=== PATIENT | male | born 1985 | race African-American/Black ===

== ENCOUNTER 2016-12-09 20:21 | Emergency (ER) | payer SELFPAY ==
[~2016-12-09] VITALS: Ht 180.3 cm; Wt 68.0 kg
[2016-12-09] MEDS ORDERED: 0.9 % SODIUM CHLORIDE 10 ML DISP.SYRIN. IV PRN (21:30)
[2016-12-09] MEDS ORDERED: LIDO:MAALOX 1:1 20 ML SINGLE DOSE PO ONE (21:45)
[2016-12-09] MEDS ORDERED: ONDANSETRON PF 4 MG/2 ML VIAL. IV ONE (21:45)
[2016-12-09] MEDS ORDERED: IV NORMAL SALINE 1,000ML 1,000 ML IV SCH (21:45)
[2016-12-09 22:08] LABS: BASO % 0 % (0-3); EOS # 0.1 x10^3/uL (0.0-0.7); EOS % 1 % (0-3); HEMATOCRIT 47.9 % (39.0-53.0); LYMPH # 1.7 x10^3/uL (1.0-4.8); LYMPH % 13 % (24-48); MEAN CORPUSCULAR HEMOGLOBIN 32 pg (25-35); MEAN CORPUSCULAR HGB CONC 34 g/dL (31-37); MEAN CORPUSCULAR VOLUME 96 fL (79-100); MONO # 0.9 x10^3/uL (0.0-1.1); MONO % 7 % (0-9); NEUT # 10.5 x10^3uL (1.8-7.7); NEUT % 80 % (31-73); PLATELET COUNT 221 x10^3/uL (140-400); RED BLOOD COUNT 4.98 x10^6/uL (4.30-5.70); WHITE BLOOD COUNT 13.2 x10^3/uL (4.0-11.0)
[2016-12-09] MEDS: HYDROmorphone PF 1 MG/ML DISP.SYRIN IV/SQ PRN (22:08)
--- NOTE | 2016-12-09 22:08 | PHYS DOC ---
Past History Past Medical History: No Pertinent History Past Surgical History: No Surgical History Smoking: Cigarettes Alcohol Use: Heavy Drug Use: None, Marijuana Adult General Chief Complaint Chief Complaint: ABDOMINAL PAIN HPI HPI Patient is a pleasant 31-year-old otherwise healthy male presents with a three- day history of epigastric abdominal pain with radiation to the back. It is described as sharp and stabbing that is worse with food better with alcohol but has not completely resolved the last 2 days. He's had one episode of nausea and vomiting today and nonbilious nonbloody with no mucus. He denies any fevers chills denies any diarrhea but has noted dark tarry stool. He denies any NSAID usage or [id number] medication abuse. Patient has never had any symptoms like this in the past. He denies travel outside the country, antibiotic use, recent trauma or suction of raw food products. He has not taken anything for his pain and he presently rates his pain a 10 of 10 worsen with position and breathing. He denies any chest pain, UTI symptoms, penile discharge or history of STDs. He does drink daily although the volume changes from day-to-day he does smoke. He denies any history of delirium tremens or withdrawal symptoms after stopping drinking. Review of Systems Review of Systems Constitutional: Denies fever or chills [] Eyes: Denies change in visual acuity, redness, or eye pain [] HENT: Denies nasal congestion or sore throat [] Respiratory: Denies cough or shortness of breath [] Cardiovascular: No additional information not addressed in HPI [] GI: He does complain of abdominal pain with nausea and vomiting times one episode. He denies any diarrhea but has had some loose black tarry stools : Denies dysuria or hematuria [] Musculoskeletal: Does complain of back pain radiates from his abdomen. Integument: Denies rash or skin lesions [] Neurologic: Denies headache, focal weakness or sensory changes [] Endocrine: Denies polyuria or polydipsia [] Current Medications Current Medications Current Medications Medications (Trade) Dose Ordered Sig/Katy Start Time Stop Time Status Last Admin Dose Admin Hydromorphone HCl (Dilaudid) 1 mg PRN Q15MIN PRN 12/09/16 21:30 12/10/16 21:29 Multi-Ingredient Mouthwash/Gargle (Gi Cocktail) 20 ml 1X ONCE 12/09/16 21:45 12/09/16 21:46 DC Ondansetron HCl (Zofran) 4 mg 1X ONCE 12/09/16 21:45 12/09/16 21:46 DC Sodium Chloride (Normal Saline Flush) 10 ml QSHIFT PRN 12/09/16 21:30 Allergies Allergies Allergies Coded Allergies Type Severity Reaction Last Updated Verified No Known Drug Allergies 12/09/16 No Physical Exam Physical Exam Constitutional: Well developed, well nourished, no acute distress, non-toxic appearance. [] HENT: Normocephalic, atraumatic, bilateral external ears normal, oropharynx moist, no oral exudates, nose normal. [] Eyes: PERRLA, EOMI, conjunctiva normal, no discharge. [] Neck: Normal range of motion, no tenderness, supple, no stridor. [] Cardiovascular:Heart rate regular rhythm, no murmur [] Lungs & Thorax: Bilateral breath sounds clear to auscultation [] Abdomen: She does have significant tenderness in epigastric region with voluntary guarding no rebound or organomegaly. Patient has no pulsatile masses Skin: Warm, dry, no erythema, no rash. [] Back: No tenderness, no CVA tenderness. [] Extremities: No tenderness, no cyanosis, no clubbing, ROM intact, no edema. [] Neurologic: Alert and oriented X 3, normal motor function, normal sensory function, no focal deficits noted. [] Psychologic: Affect normal, judgement normal, mood normal. [] Current Patient Data Vital Signs Vital Signs Date Time Temp Pulse Resp B/P (MAP) Pulse Ox O2 Delivery O2 Flow Rate FiO2 12/09/16 21:00 97.7 64 16 100 Room Air Lab Results Laboratory Tests Test 12/09/16 21:50 12/09/16 22:25 White Blood Count 13.2 x10^3/uL (4.0-11.0) H Red Blood Count 4.98 x10^6/uL (4.30-5.70) Hemoglobin 16.0 g/dL (13.0-17.5) Hematocrit 47.9 % (39.0-53.0) Mean Corpuscular Volume 96 fL (79-100) Mean Corpuscular Hemoglobin 32 pg (25-35) Mean Corpuscular Hemoglobin Concent 34 g/dL (31-37) Red Cell Distribution Width 14.0 % (11.5-14.5) Platelet Count 221 x10^3/uL (140-400) Neutrophils (%) (Auto) 80 % (31-73) H Lymphocytes (%) (Auto) 13 % (24-48) L Monocytes (%) (Auto) 7 % (0-9) Eosinophils (%) (Auto) 1 % (0-3) Basophils (%) (Auto) 0 % (0-3) Neutrophils # (Auto) 10.5 x10^3uL (1.8-7.7) H Lymphocytes # (Auto) 1.7 x10^3/uL (1.0-4.8) Monocytes # (Auto) 0.9 x10^3/uL (0.0-1.1) Eosinophils # (Auto) 0.1 x10^3/uL (0.0-0.7) Basophils # (Auto) 0.0 x10^3/uL (0.0-0.2) Sodium Level 142 mmol/L (136-145) Potassium Level 3.8 mmol/L (3.5-5.1) Chloride Level 105 mmol/L (98-107) Carbon Dioxide Level 30 mmol/L (21-32) Anion Gap 7 (6-14) Blood Urea Nitrogen 9 mg/dL (8-26) Creatinine 0.9 mg/dL (0.7-1.3) Estimated GFR (Cockcroft-Gault) 119.9 BUN/Creatinine Ratio 10 (6-20) Glucose Level 91 mg/dL (70-99) Calcium Level 8.1 mg/dL (8.5-10.1) L Total Bilirubin 0.6 mg/dL (0.2-1.0) Aspartate Amino Transferase (AST) 13 U/L (15-37) L Alanine Aminotransferase (ALT) 15 U/L (16-63) L Alkaline Phosphatase 61 U/L (46-116) Total Protein 6.9 g/dL (6.4-8.2) Albumin 3.2 g/dL (3.4-5.0) L Albumin/Globulin Ratio 0.9 (1.0-1.7) L Lipase 74 U/L (73-393) Ethyl Alcohol Level < 10 mg/dL (0-10) EKG EKG [] Radiology/Procedures Radiology/Procedures [address] [id number] IMAGING REPORT Signed PATIENT: EDMAR CLAIRE ACCOUNT: [id number] : 1985 LOCATION: ER AGE: 31 SEX: M EXAM STATUS: REG ER ORD. PHYSICIAN: BHAVIN CONTRERAS MD REASON: abdominal pain nausea vomiting black tarry stool EtOH consumption PROCEDURE: CT ABD PELV W/ IV CONTRST ONLY CT scan of the abdomen and pelvis with contrast 12/09/2016 CLINICAL HISTORY: Central abdominal pain and vomiting TECHNIQUE: After the intravenous administration of 75 cc of Omnipaque 300, contiguous, 5 mm axial sections were obtained through the abdomen and pelvis. One or more of the following individualized dose reduction techniques were utilized for this study: 1. Automated exposure control. 2. Adjustment of the mA and/or kV according to patient size. 3. Use of iterative reconstruction technique. FINDINGS: Images through the lung bases are within normal limits. The liver, spleen, pancreas, adrenal glands and kidneys are within normal limits. The abdominal aorta tapers normally. The gallbladder is well-distended. A small amount of ascites is seen inferior to the right lobe of the liver. There is no evidence of bowel obstruction. No free air is seen. The mid/distal aspect of the appendix is dilated measuring 1.7 cm in diameter. Marked wall thickening of the appendix is seen. Increased density is seen within the adjacent fat. These findings are consistent with acute appendicitis. Images through the pelvis demonstrate the urinary bladder distended with urine. Small amount of free fluid is seen within the pelvis. Calcifications are seen within the pelvis consistent with phleboliths. Minimal S-shaped curvature of the thoracolumbar spine is seen. IMPRESSION: Findings are seen consistent with acute appendicitis. Small amount of free fluid is seen within the abdomen and pelvis. No well-defined abscess is seen. Electronically signed by: Edward Negro MD (12/10/2016 12:48 AM) [facility] DICTATED AND SIGNED BY: EDWARD NEGRO MD DATE: 12/10/16 0042 CC: BHAVIN CONTRERAS MD; PCP,NO ~ [] Course & Med Decision Making Course & Med Decision Making Pertinent Labs and Imaging studies reviewed. (See chart for details) reviewed nursing notes, vital signs, physical and history. Patient's H&H is nice and stable patient's lipase is normal patient's AST and ALTs are actually low. Patient only abnormal laboratory value isn't elevated white blood count of 13.2 patient's abdominal pain is improved with fluids and pain medications here in the emergency department. It is now approximately 12 AM the patient is feeling better waiting for CT results. Time is now 12:24 AMPatient tells me that their symptoms given during CC are improved. We reviewed labs with family at the bedside and patient denied rectal exam to be completed. It is transverse and the medications are not completely exam is willing to wait. Given the fact that his H&H is nice and stable I doubt he spinning significantly. Although he is feeling markedly better. Some gnawing abdominal pain and epigastric region. We did talk about the possibility of peptic ulcer as the cause of his symptoms or gastric ulcer. We will treat him empirically with a GI cocktail and see if it was improved his symptoms and follow-up with a GI physician for endoscopy is necessary in the future. Time is now 1245. Patient's pain is still not improving anymore than it was initially. Is now localized more to the right lower quadrant CT scan is still pending. His last meal was at 2 PM Time is now 12:[address] scan or as returned and there is obvious appendicitis with mild fluid in the abdomen. We'll need to call general surgeon transferred to [facility] Consultant note: Internal medicine paged at 1 AM In Processing Instructor called at of the service Dr. Estefania Nguyen when she returned a phone call after 1.5 hours Consult called back at Discussed the case I presented and they agreed with admission. Time of acceptance 2:35 AM Consult note general surgery patient initially at [address] Carver return phone call 1 6 AM see patient this morning to plan to take him to the OR and removes his infected appendix. Impression: Acute appendicitis abdominal pain nausea and vomiting Disposition: Transfer to [facility] for general surgery services. [] Dragon Disclaimer Dragon Disclaimer This chart was dictated in whole or in part using Voice Recognition software in a busy, high-work load, and often noisy Emergency Department environment. It may contain unintended and wholly unrecognized errors or omissions. Departure Departure: Impression: Primary Impression: Abdominal pain Additional Impressions: Nausea and vomiting Appendicitis Disposition: 02 XFER SHT-TRM HOSP Admitting Physician: Other Condition: GUARDED Referrals: PCP,NO (PCP) Patient Instructions: Appendicitis Problem Qualifiers BHAVIN CONTRERAS MD Dec 09, 2016 22:08
[2016-12-09 22:51] LABS: ALBUMIN 3.2 g/dL (3.4-5.0); ALBUMIN/GLOBULIN RATIO 0.9 (1.0-1.7); CALCIUM 8.1 mg/dL (8.5-10.1); CREATININE 0.9 mg/dL (0.7-1.3); GFR 119.9; POTASSIUM 3.8 mmol/L (3.5-5.1); TOTAL BILIRUBIN 0.6 mg/dL (0.2-1.0); TOTAL PROTEIN 6.9 g/dL (6.4-8.2)
[2016-12-09] MEDS ORDERED: IOHEXOL 300 MG/ML 75 ML VIAL. IV ONE (23:15)
[2016-12-09] MEDS ORDERED: CONTRAST GIVEN MC PRN (23:15)
--- NOTE | 2016-12-10 00:52 | RAD ---
CT scan of the abdomen and pelvis with contrast 12/09/2016 CLINICAL HISTORY: Central abdominal pain and vomiting TECHNIQUE: After the intravenous administration of 75 cc of Omnipaque 300, contiguous, 5 mm axial sections were obtained through the abdomen and pelvis. One or more of the following individualized dose reduction techniques were utilized for this study: 1. Automated exposure control. 2. Adjustment of the mA and/or kV according to patient size. 3. Use of iterative reconstruction technique. FINDINGS: Images through the lung bases are within normal limits. The liver, spleen, pancreas, adrenal glands and kidneys are within normal limits. The abdominal aorta tapers normally. The gallbladder is well-distended. A small amount of ascites is seen inferior to the right lobe of the liver. There is no evidence of bowel obstruction. No free air is seen. The mid/distal aspect of the appendix is dilated measuring 1.7 cm in diameter. Marked wall thickening of the appendix is seen. Increased density is seen within the adjacent fat. These findings are consistent with acute appendicitis. Images through the pelvis demonstrate the urinary bladder distended with urine. Small amount of free fluid is seen within the pelvis. Calcifications are seen within the pelvis consistent with phleboliths. Minimal S-shaped curvature of the thoracolumbar spine is seen. IMPRESSION: Findings are seen consistent with acute appendicitis. Small amount of free fluid is seen within the abdomen and pelvis. No well-defined abscess is seen. Electronically signed by: Edward Negro MD (12/10/2016 12:48 AM) [facility]
[2016-12-10] MEDS ORDERED: HYDROmorphone PF 1 MG/ML DISP.SYRIN IV ONE (01:00)
[2016-12-10] MEDS ORDERED: LIDO:MAALOX 1:1 20 ML SINGLE DOSE PO ONE (01:00)
[2016-12-10] MEDS: HYDROmorphone PF 1 MG/ML DISP.SYRIN IV/SQ PRN (01:00)
[2016-12-10 01:01] VITALS: BP 126/81
[2016-12-10] MEDS ORDERED: IV NORMAL SALINE 50ML 50 ML ONE (01:10)
[2016-12-10] MEDS ORDERED: PIPERACILLIN/TAZOBACTAM 4.5 GM VIAL IV ONE (01:10)
[2016-12-10] MEDS ORDERED: PIPERACILLIN/TAZOBACTAM 4.5 GM in IV NORMAL SALINE 50ML 50 ML IV ONE (01:30)
== END 2016-12-10 03:12 | disposition short-term general hospital (02) ==
LOC: ER 20:21
DX: K37 Unspecified appendicitis (principal); F17.210 Nicotine dependence, cigarettes, uncomplicated; F12.10 Cannabis abuse, uncomplicated; F10.10 Alcohol abuse, uncomplicated
CPT/HCPCS: 36415; 74177; 80053; 80320; 83690; 85027; 96361; 96365; 96375; 96376; 99285; J1170; J2405; J2543; Q9967; G0480; J7030

== ENCOUNTER 2019-02-12 09:57 | Emergency (ER) | payer SELFPAY ==
[~2019-02-12] VITALS: Ht 180.3 cm; Wt 71.3 kg
[2019-02-12 10:11] VITALS: BP 112/79
[2019-02-12] MEDS ORDERED: AMOX1TAB61 PO (10:27)
[2019-02-12] MEDS ORDERED: HYDR-3165 PO (10:27)
--- NOTE | 2019-02-12 12:46 | PHYS DOC ---
Past History Past Medical History: No Pertinent History Past Surgical History: No Surgical History Smoking: Cigarettes Alcohol Use: Heavy Drug Use: None, Marijuana Adult General Chief Complaint Chief Complaint: DENTAL PROBLEM HPI HPI Patient is a 33-year-old male with right upper molar pain and facial swelling no fever times one week slowly worsening he will see a dentist this week Allergies Allergies Allergies Coded Allergies Type Severity Reaction Last Updated Verified No Known Drug Allergies 12/09/16 No Physical Exam Physical Exam Constitutional: Well developed, well nourished, no acute distress, non-toxic appearance. [] HENT: Normocephalic, atraumatic, bilateral external ears normal, oropharynx moist, no oral exudates, nose normal. []Mild swelling of the right upper face there is poor dentition with a cracked tooth on molar approximately #14 no drainable abscess seen Eyes: PERRLA, EOMI, conjunctiva normal, no discharge. [] Neck: Normal range of motion, no tenderness, supple, no stridor. [] Abdomen: Bowel sounds normal, soft, no tenderness, no masses, no pulsatile masses. [] Skin: Warm, dry, no erythema, no rash. [] Back: No tenderness, no CVA tenderness. [] Extremities: No tenderness, no cyanosis, no clubbing, ROM intact, no edema. [] Neurologic: Alert and oriented X 3, normal motor function, normal sensory function, no focal deficits noted. [] Psychologic: Affect normal, judgement normal, mood normal. [] Current Patient Data Vital Signs Vital Signs Date Time Temp Pulse Resp B/P (MAP) Pulse Ox O2 Delivery O2 Flow Rate FiO2 02/12/19 10:11 98.1 68 18 97 Room Air EKG EKG [] Radiology/Procedures Radiology/Procedures [] Impressions: came into the ER On his own power for upper right dental pain. Distress * Mild Temperature (Fahrenheit): * 98.1 degrees F (97.6-99.5) Patient Temperature * 98.1 degrees F (97.5-99.5) Temperature Source * Oral Blood Pressure Systolic * 112 mm Hg (100-140) Blood Pressure Diastolic * 79 mm Hg (60-100) Blood Pressure Mean * 90 mm Hg Blood Pressure Location * Right Arm Blood Pressure Source * Automatic Cuff Pulse Rate * 68 beats per minute (60-90) Pulse Assessment Method * NIBP Respiratory Rate * 18 breaths per minute (12-24) Oxygen Delivery Method * Room Air Bedside Pulse Oximetry * 97 % Treatment Prior to Arrival * No Complaint of Pain * Yes Pain Scale Type Course & Med Decision Making Course & Med Decision Making Pertinent Labs and Imaging studies reviewed. (See chart for details) []33-year-old male with dental pain we'll do the above below treatment Dragon Disclaimer Dragon Disclaimer This electronic medical record was generated, in whole or in part, using a voice recognition dictation system. Departure Departure: Impression: Primary Impression: Pain, dental Disposition: HOME, SELF-CARE Condition: STABLE Patient Instructions: Toothache-Brief Scripts Hydrocodone Bit/Acetaminophen (NORCO 5-325 TABLET) 1 Each Tablet 1-2 TAB PO Q4-6HRS PRN for PAIN, #12 TAB Prov: ERNIE BRANTLEY MD 02/12/19 Amoxicillin/Potassium Clav (AUGMENTIN 875-125 TABLET) 1 Each Tablet 1 TAB PO BID for tooth, #14 TAB Prov: ERNIE BRANTLEY MD 02/12/19 ERNIE BRANTLEY MD Feb 12, 2019 12:46
== END 2019-02-12 10:30 | disposition home or self-care (01) ==
LOC: ER 09:57
DX: K03.81 Cracked tooth (principal); K08.89 Other specified disorders of teeth and supporting structures; F17.210 Nicotine dependence, cigarettes, uncomplicated; F10.20 Alcohol dependence, uncomplicated; Y90.9 Presence of alcohol in blood, level not specified
CPT/HCPCS: 99283